=== PATIENT | female | born 1985 ===

== ENCOUNTER 2023-03-29 21:47 | Emergency (ER) | payer SELFPAY ==
[~2023-03-29] VITALS: Ht 160 cm; Wt 54.5 kg
[2023-03-29 22:13] VITALS: BP 113/77; PULSE 96; RESP 14; TEMP 97.5; O2SAT 100
== END 2023-03-29 23:27 | disposition left against medical advice (07) ==
LOC: ER 21:50
DX: R42 Dizziness and giddiness (principal); Z53.21 Procedure and treatment not carried out due to patient leaving prior to being seen by health care provider
CPT/HCPCS: 99281